=== PATIENT | female | born 1985 | race Caucasian/White ===

== ENCOUNTER 2017-08-10 10:07 | Day surgery (SDC) | payer MEDICAID ==
--- NOTE | 2017-08-09 19:21 | PREOPHP ---
DATE OF ADMISSION: 08/10/2017 HISTORY OF PRESENT ILLNESS: Ms. Verduzco is a 31-year-old, 3, para 3, desires permanent surgical sterilization. PAST MEDICAL HISTORY: None. MEDICATIONS: None. PAST SURGICAL HISTORY: None. OBSTETRICAL HISTORY: Three vaginal deliveries. Her last vaginal delivery was in 2014. GYNECOLOGICAL HISTORY: 12 regular, 34 days. Denies any sexually transmitted disease. Sexually active with 1 partner. SOCIAL HISTORY: Denies any smoking, drugs, or alcohol. FAMILY HISTORY: None. REVIEW OF SYSTEMS: All within normal except History of Present Illness. PHYSICAL EXAMINATION: HEENT: Within normal. LUNGS: CTA bilaterally. CARDIAC: S1, S2. Regular rhythm. ABDOMEN: Soft, nontender. Negative distention. EXTREMITIES: Negative edema. No calf tenderness. PELVIC: Vaginal exam, normal external genitalia. Cervix negative. negative lesions. Adnexa negative mass, nontender bilateral. Fundus within normal limits. ASSESSMENT: Multiparity, desires permanent surgical sterilization. PLAN: Consent for hysteroscopic tubal occlusion by Essure implant with possible laparoscopic bilateral tubal sterilization. Risks, benefits, and alternatives explained, patient understands and desires the above procedure. Dictated By: Jaylen Rasmussen MD /[email or web address]/linda /Document#: [id number]
[~2017-08-10] VITALS: Ht 154.9 cm; Wt 69.3 kg
[2017-08-10] VITALS (16 sets, daily range): BP systolic 99–117; BP diastolic 54–66; PULSE 64–80; RESP 15–22; Ht 154.9 cm; Wt 69.3 kg
[2017-08-10 11:03] LABS: BASOPHILS % 0.4 % (0.0-2.0); EOSINOPHILS # 0.1 10^3/ul (0.0-0.5); EOSINOPHILS % 0.8 % (0.0-7.0); HEMATOCRIT 42.9 % (37.0-47.0); LYMPHOCYTES # 2.7 10^3/ul (0.8-2.9); LYMPHOCYTES % 36.9 % (15.0-51.0); MEAN CORPUSCULAR HEMOGLOBIN 27.6 pg (29.0-33.0); MEAN CORPUSCULAR HGB CONC 32.6 g/dl (32.0-37.0); MEAN CORPUSCULAR VOLUME 84.4 fl (82.0-101.0); MEAN PLATELET VOLUME 9.6 fl (7.4-10.4); MONOCYTE # 0.5 10^3/ul (0.3-0.9); MONOCYTES % 6.9 % (0.0-11.0); NEUTROPHIL # 3.9 10^3/ul (1.6-7.5); NEUTROPHILS % 54.7 % (39.0-77.0); PLATELET COUNT 266 10^3/UL (140-415); RED BLOOD COUNT 5.08 10^6/ul (4.20-5.40); WHITE BLOOD COUNT 7.2 10^3/ul (4.8-10.8)
[2017-08-10] MEDS ORDERED: MIDAZOLAM 1 MG/ML 2 ML INJ ONE (11:22)
[2017-08-10] MEDS ORDERED: KETOROLAC 30 MG INJ ONE (11:35)
[2017-08-10] MEDS ORDERED: FENTAnyl 50 MCG/ML VIAL ONE (11:35)
[2017-08-10] MEDS ORDERED: PROPOFOL 20 ML ONE (11:35)
[2017-08-10] MEDS ORDERED: METOCLOPRAMIDE 10 MG INJ ONE (11:36)
[2017-08-10] MEDS ORDERED: CEFAZOLIN 1 GM INJ ONE (11:48)
[2017-08-10] MEDS ORDERED: MEPERIDINE 25 MG INJ IV PRN (12:00)
[2017-08-10] MEDS ORDERED: OXYCODONE/ACETAMINOPHEN (5/325) TAB PO PRN ×2 (12:00)
[2017-08-10] MEDS ORDERED: ONDANSETRON 4 MG INJ IV PRN (12:00)
[2017-08-10] MEDS ORDERED: DIPHENHYDRAMINE 50 MG INJ IV PRN (12:00)
[2017-08-10] MEDS ORDERED: HYDROmorphONE (0.2 MG/ML) 10ML SYG IV PRN ×3 (12:00)
[2017-08-10] MEDS ORDERED: ROCURONIUM 50 MG INJ ONE (12:29)
[2017-08-10] MEDS ORDERED: ROPIVACAINE 0.5 % 30 ML VIAL ONE (12:36)
[2017-08-10] MEDS ORDERED: PHENYLephrine (100 MCG/ML) 5ML SYG ONE (12:48)
[2017-08-10] MEDS ORDERED: NEOSTIGMINE 3 MG/3 ML SYRINGE ONE (12:59)
[2017-08-10] MEDS ORDERED: GLYCOPYRROLATE 0.4 MG INJ ONE (12:59)
--- NOTE | 2017-08-10 13:33 | SIPON ---
Date/Time of Note Date/Time of Note DATE: 08/10/17 TIME: 13:29 Operative Report Preoperative Diagnosis Multiparity desires permanent surgical sterilization Postoperative Diagnosis Same Operation/Procedure Performed Hysteroscopic occlusion of left tube with Essure implant Laparoscopic right fallopian tube fulguration Surgeon see signature line faculty research assistant Dr. Magaña Anesthesia: general Estimated blood loss: minimal Transfusion Required none Specimen none Grafts/Implants essure implant in left ostium lot number [id number] Complications resistance in right ostia JOSE GUADALUPE DE ANDA MD Aug 10, 2017 13:33
--- NOTE | 2017-08-10 13:34 | PD.PPDC ---
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
--- NOTE | 2017-08-10 15:10 | OPR ---
DATE OF OPERATION: 08/10/2017 PREOPERATIVE DIAGNOSIS: Multiparity and desires permanent surgical sterilization. POSTOPERATIVE DIAGNOSIS: Multiparity and desires permanent surgical sterilization. OPERATION PERFORMED: Hysteroscopic tubal occlusion of the left tube and laparoscopic tubal fulguration of the right fallopian tube. FINDINGS: Bimanual size within normal position anteverted. Hysteroscopic of the uterus, adequate ostia were both visualized. Adhesion absent. Placement of three trailing coils on the left. Positive resistance on the right ostia, unable to perform the implant. Laparoscopic fulguration of the right fallopian tube was performed. The uterus, tubes, and ovaries were normal on laparoscopic view. ESTIMATED BLOOD LOSS: Minimal. SPECIMEN: None. COMPLICATION OF PROCEDURE: None. ANESTHESIA: General. SURGEON: Dr. Jaylen Rasmussen INSPECTOR EXPERIMENTAL ASSEMBLY: Dr. Magaña PROCEDURE: After explaining the risks, benefits and alternatives, and consent signed chart, the patient was to the operating room, where general anesthesia was obtained without difficulty. The patient was then examined under anesthesia and was found to have a small anteverted uterus with normal adnexa. She was then placed in dorsal supine position and prepared and draped in a normal sterile fashion. A heavy weighted speculum was then placed in the patient's vagina and the anterior lip of the cervix was grasped with a single-tooth tenaculum. A hysteroscope was then entered into the uterine cavity and with noted findings above. Both tubal ostia were identified. The delivery catheter was then inserted into the left tubal ostia, up to the black marker. The delivery catheter was retracted and the device was deployed. After 10 seconds, the catheter was detached from the device. The device was then in good position with 3 trailing coils on the left side. The procedure was attempted to be repeated on the right side. However, resistance was observed on multiple trials. At this point the patient was redraped in a sterile fashion. A Scruggs catheter was inserted and a heavy weighted speculum was then placed in the patient's vagina and the anterior lip of the cervix was grasped with a single-tooth tenaculum. A HUMI uterine manipulator was then advanced into the uterus to provide means to manipulate the uterus. The speculum was then removed from the patient's vagina. Attention was then turned to the patient's abdomen where a 5 mm skin incision was made in the umbilical fold. The Veress needle was carefully introduced into the peritoneal cavity at a 45 degree angle while tenting the abdominal wall. Intraperitoneal placement was confirmed by use of water-filled syringe and drop in intra- abdominal pressure with insufflation of CO2 gas. The trocar and sleeve was then advanced without difficulty into the abdomen where intra-abdominal placement was confirmed by the laparoscope. Pneumoperitoneum was obtained with 4 L of CO2 gas and the 5 mm trocar and sleeve were then advanced without difficulty in the abdomen where intra-abdominal placement was confirmed by laparoscope. A second skin incision was made 2 cm above the symphysis pubis in the midline. The second trocar and sleeve were then advanced under direct visualization. A survey of the patient's pelvis and abdomen revealed entirely normal anatomy. The right fallopian tube was fulgurated multiple areas of the ischium and the ampullary regions with good blanching. There was no bleeding from the mesosalpinx. The instruments were then removed from the patient's abdomen and the incision was repaired with 4-0 Monocryl. The HUMI was then removed from the patient's vagina and no bleeding was noted from the cervix. The patient tolerated the procedure well. Sponge, lap, needle counts correct x2. The patient was taken to the recovery room in stable condition. Patient advised to perform a hysterosalpingogram in 3 months for confirmation of tubal occlusion. In the meantime, the patient understands that she needs to use other forms of contraception until confirmation. Dictated By: Jaylen Rasmussen MD /[email or web address]/telma /Document#: [id number] DARIELA
== END 2017-08-10 15:50 | disposition home or self-care (01) ==
LOC: SUR 10:07 → SDS 10:07 → SUR 15:50
PROVIDERS: ATTEND Obstetrics & Gynecology
DX: Z30.2 Encounter for sterilization (principal)
CPT/HCPCS: 58565; 58670; 84702; 84703; 85025; 86850; 86900; 86901; A4264; J0690; J1885; J2250; J2370; J2765; J2795; J3010; Z7512; Z7610; J2710